=== PATIENT | male | born 1995 | race Caucasian/White ===

== ENCOUNTER 2021-02-14 15:06 | Emergency (ER) | payer BC, OTHER ==
[~2021-02-14] VITALS: Ht 175.3 cm; Wt 97.5 kg
[2021-02-14] MEDS ORDERED: HYDROcodone-ACET 10/325MG TAB PO ONE (16:15)
[2021-02-14] MEDS ORDERED: MORPHINE SULFATE 4 MG/ML SYR/VIAL IV ONE ×2 (16:45→19:45)
[2021-02-14] MEDS ORDERED: ONDANSETRON HCL 4 MG/2 ML VIAL ONE (16:48)
[2021-02-14] MEDS ORDERED: MORPHINE SULFATE 4 MG/ML SYR/VIAL ONE (16:48)
[2021-02-14] MEDS ORDERED: ONDANSETRON HCL 4 MG/2 ML VIAL IV ONE ×2 (17:00→19:45)
[2021-02-14] MEDS: LIDOCAINE 1% HCL (LOCAL ANESTH.) INJ 20ML MDV IJ ONE ×2 (17:05→18:38)
[2021-02-14] MEDS ORDERED: SODIUM CHLORIDE 0.9% 1,000 ML IV ONE (17:30)
[2021-02-14 19:49] VITALS: BP 123/75
== END 2021-02-14 20:14 | disposition short-term general hospital (02) ==
LOC: ER 15:06
DX: S32.591A Other specified fracture of right pubis, initial encounter for closed fracture (principal); S32.511A Fracture of superior rim of right pubis, initial encounter for closed fracture; S52.501A Unspecified fracture of the lower end of right radius, initial encounter for closed fracture; S22.31XA Fracture of one rib, right side, initial encounter for closed fracture; F17.210 Nicotine dependence, cigarettes, uncomplicated; V86.56XA Driver of dirt bike or motor/cross bike injured in nontraffic accident, initial encounter; Y93.89 Activity, other specified; Y92.89 Other specified places as the place of occurrence of the external cause; Y99.8 Other external cause status
CPT/HCPCS: 12001; 71101; 72070; 72100; 73070; 73100; 73502; 96361; 96374; 96375; 96376; 99285; J2001; J2270; J2405